=== PATIENT | male | born 1960 | race African-American/Black ===

== ENCOUNTER 2018-02-23 08:38 | Emergency (ER) | payer OTHER ==
[~2018-02-23] VITALS: Ht 175.3 cm; Wt 59.0 kg
[2018-02-23] MEDS ORDERED: TRICOR145 MG (09:18)
[2018-02-23] MEDS ORDERED: LOSARTAN POTASS50 MG (09:20)
== END 2018-02-23 12:55 | disposition home or self-care (01) ==
LOC: ER 08:38
DX: G44.89 Other headache syndrome (principal); I10 Essential (primary) hypertension

== ENCOUNTER 2019-09-29 06:58 | Emergency (ER) | payer OTHER ==
[~2019-09-29] VITALS: Ht 175.3 cm; Wt 99.8 kg
[~2019-09-29 06:58] MED LIST: LOSARTAN POTASS50 MG; TRICOR145 MG
[2019-09-29] MEDS ORDERED: ASPIR 8181 MG PO (07:23)
[2019-09-29] MEDS ORDERED: SIMVASTATIN80 MG PO (07:24)
== END 2019-09-29 09:06 | disposition home or self-care (01) ==
LOC: ER 06:58
DX: J35.01 Chronic tonsillitis (principal)

== ENCOUNTER 2020-01-18 08:45 | Emergency (ER) | payer OTHER ==
[~2020-01-18] VITALS: Ht 175.3 cm; Wt 104.3 kg
[~2020-01-18 08:45] MED LIST changes: +ASPIR 8181 MG PO; +SIMVASTATIN80 MG PO
[2020-01-18] MEDS ORDERED: COZAAR25 MG PO (09:41)
[2020-01-18] MEDS ORDERED: TRICOR48 MG PO (09:42)
[2020-01-18] MEDS ORDERED: ZITHROMAX500 MG PO (12:17)
== END 2020-01-18 12:26 | disposition home or self-care (01) ==
LOC: ER 08:45
DX: R42 Dizziness and giddiness (principal); B96.0 Mycoplasma pneumoniae [M. pneumoniae] as the cause of diseases classified elsewhere; F41.8 Other specified anxiety disorders

== ENCOUNTER 2020-04-10 14:51 | Emergency (ER) | payer OTHER ==
[~2020-04-10] VITALS: Ht 175.3 cm; Wt 92.1 kg
[~2020-04-10 14:51] MED LIST changes: +COZAAR25 MG PO; +TRICOR48 MG PO; +ZITHROMAX500 MG PO
[2020-04-10] MEDS ORDERED: ANTIVERT PO (15:08)
[2020-04-10] MEDS ORDERED: COZAAR25 MG PO (15:08)
== END 2020-04-10 16:58 | disposition home or self-care (01) ==
LOC: ER 14:51
DX: R42 Dizziness and giddiness (principal); H61.21 Impacted cerumen, right ear